=== PATIENT | female | born 1990 | race Caucasian/White ===

== ENCOUNTER 2018-05-20 14:16 | Emergency (ER) | payer OTHER ==
--- NOTE | 2018-05-20 15:29 | EDPHY ---
H & P Stated Complaint: L knee injury skiing, denies LOC/hit head, good sensation Time Seen by Provider: 05/20/18 15:17 HPI/ROS: CHIEF COMPLAINT: Left knee pain HISTORY OF PRESENT ILLNESS: Patient is a 27-year-old female who comes to the emergency department complaining of left knee pain. She states that she twisted it when she fell skiing. It twisted in words. She states that it felt loose when she tried to get her ski back on. She denies other injuries. No hip pain or ankle pain. Foot does not feel cold or numb. No low back pain. Severity: Moderate Modifying factors: Worsened by movement. REVIEW OF SYSTEMS: Constitutional: denies: chills, fever, recent illness, recent injury EENTM: denies: blurred vision, double vision, nose congestion Respiratory: denies: cough, shortness of breath Cardiac: denies: chest pain, irregular heart rate, lightheadedness, palpitations Gastrointestinal/Abdominal: denies: abdominal pain, diarrhea, nausea, vomiting, blood streaked stools Genitourinary: denies: dysuria, frequency, hematuria, pain Musculoskeletal: denies: joint pain, muscle pain Skin: denies: lesions, rash, jaundice, bruising Neurological: denies: headache, numbness, paresthesia, tingling, dizziness, weakness Hematologic/Lymphatic: denies: blood clots, easy bleeding, easy bruising Immunologic/allergic: denies: HIV/AIDS, transplant 10 systems reviewed and negative except as noted EXAM: GENERAL: Well-appearing, well-nourished and in no acute distress. HEAD: Atraumatic, normocephalic. EYES: Pupils equal round and reactive to light, extraocular movements intact, sclera anicteric, conjunctiva are normal. ENT: TMs normal, nares patent, oropharynx clear without exudates. Moist mucous membranes. NECK: Normal range of motion, supple without lymphadenopathy or JVD. LUNGS: Breath sounds clear to auscultation bilaterally and equal. No wheezes rales or rhonchi. HEART: Regular rate and rhythm without murmurs, rubs or gallops. ABDOMEN: Soft, nontender, normoactive bowel sounds. No guarding, no rebound. No masses appreciated. BACK: No CVA tenderness, no spinal tenderness, step-offs or deformities EXTREMITIES: Left knee pain, pain with range of motion. No pain with palpation. No obvious swelling or deformity. NEUROLOGICAL: Cranial nerves II through XII grossly intact. Normal speech, normal gait. 5/5 strength, normal movement in all extremities, normal sensation , normal reflexes PSYCH: Normal mood, normal affect. SKIN: Warm, dry, normal turgor, no visible rashes or lesions. Source: Patient Exam Limitations: No limitations - Personal History Current Tetanus/Diphtheria Vaccine: No - Medical/Surgical History Hx Asthma: No Hx Chronic Respiratory Disease: No Hx Diabetes: No Hx Cardiac Disease: No Hx Renal Disease: No Hx Cirrhosis: No Hx Alcoholism: No Hx HIV/AIDS: No Hx Splenectomy or Spleen Trauma: No Other PMH: none - Family History Significant Family History: No pertinent family hx - Social History Smoking Status: Never smoked Alcohol Use: None Constitutional: Initial Vital Signs Temperature (C) 37.3 C 05/20/18 14:19 Heart Rate 65 05/20/18 14:19 Respiratory Rate 18 05/20/18 14:19 Blood Pressure 137/92 H 05/20/18 14:19 O2 Sat (%) 97 05/20/18 14:19 O2 Delivery Mode Room Air Allergies/Adverse Reactions: No Known Allergies Allergy (Unverified 05/20/18 14:18) Medical Decision Making - Diagnostics Imaging: Discussed imaging studies w/ call center agent Radiologist Procedures: Procedure: Splint placement. A straight leg Velcro splint was applied. After application of the splint I returned and re-examined the patient. The splint was adequately immobilizing the joint and distal to the splint the patient's circulation and sensation was intact. ED Course/Re-evaluation: Boyfriend is very persistent about requesting an MRI. We discussed at length that MRI is a limited resource and cannot be done from the ER but would need to be scheduled through her orthopedist. They are somewhat disappointed by this and asked if they could be transferred to a different hospital. I told them that I know of no other hospital in the country that would perform an MRI in her knee at this time. 4:30 p.m. the patient is able to ambulate with brace and does not wish to have crutches. Will follow up with Orthopedics. Declines further workup or testing at this time. Differential Diagnosis: Partial list of the Differential diagnosis considered include but were not limited to; knee strain, fracture, ligamentous injury and although unlikely based on the history and physical exam, I also considered infection, vascular injury, dislocation. - Data Points Medications Given: Discontinued Medications Ibuprofen (Motrin) 600 mg PO EDNOW ONE Stop: 05/20/18 16:03 Last Admin: 05/20/18 16:08 Dose: 600 mg Departure - Departure Disposition: Home, Routine, Self-Care Clinical Impression: Patella chip fracture Knee pain, left Qualifiers: Chronicity: acute Qualified Code(s): M25.562 - Pain in left knee Condition: Fair Instructions: Knee Pain (ED) Additional Instructions: . You do have a possible small chip off of your knee cap wear the brace as tolerated and follow up with Orthopedics as planned. Referrals: NONE *PRIMARY CARE P,. [Primary Care Provider] - As per Instructions Andrey Nam MD [Medical Doctor] - 2-3 days, call for appt.
[2018-05-20] MEDS ORDERED: IBUPROFEN 600 MG TAB PO ONE ×2 (16:02→16:03)
[2018-05-20 16:42] VITALS: BP 132/74
== END 2018-05-20 16:42 | disposition home or self-care (01) ==
DX: S82.092A Other fracture of left patella, initial encounter for closed fracture (principal); V00.321A Fall from snow-skis, initial encounter; Y93.23 Activity, snow (alpine) (downhill) skiing, snowboarding, sledding, tobogganing and snow tubing; Y92.828 Other wilderness area as the place of occurrence of the external cause; Y99.9 Unspecified external cause status
CPT/HCPCS: L1830